=== PATIENT | male | born 1930 | race Caucasian/White ===

== ENCOUNTER 2020-02-01 01:24 | Inpatient (IN) | payer OTHER ==
[~2020-02-01] VITALS: Ht 167.6 cm; Wt 64.4 kg
[2020-02-01] MEDS ORDERED: FOLIC ACID1 MG PO (05:04)
[2020-02-01] MEDS ORDERED: LEXAPRO 10 MG T10 M1 PO (05:04)
[2020-02-01] MEDS ORDERED: FLOMAX0.4 MG PO (05:05)
[2020-02-01] MEDS ORDERED: PROSCAR 5MG TABL5 M1 PO (05:05)
[2020-02-01] MEDS ORDERED: NAMENDA 5 MG TAB5 M1 PO (05:06)
[2020-02-01] MEDS ORDERED: SEROQUEL 25 MG25 MG PO (05:07)
[2020-02-01 07:48] VITALS: BP 143/59
[2020-02-01 13:18] LABS: ABSOLUTE NEUTROPHILS 2.6 thou/uL (1.4-8.2); BASOPHILS 0.7 % (0.0-2.0); EOSINOPHILS 4.2 % (0.0-3.0); HEMATOCRIT 44.3 % (42.0-52.0); HEMOGLOBIN 14.5 gm/dL (14.0-18.0); LYMPHOCYTES 18.7 % (24.0-44.0); MCH 31.8 pg (26.0-34.0); MCHC 32.8 g/dL (28.0-37.0); MCV 96.9 fL (80.0-100.0); MONOCYTES 8.3 % (1.0-8.0); PLATELET COUNT 196 thou/uL (150-400); POLYS 68.1 % (36.0-66.0); RBC 4.57 mil/uL (4.50-6.00); RDW 13.9 % (10.5-14.5); WBC 3.9 thou/uL (4.0-11.0)
[2020-02-01 13:39] LABS: ALBUMIN 3.8 g/dL (3.4-5.0); CALCIUM 9.6 mg/dL (8.5-10.1); CREATININE 1.6 mg/dL (0.7-1.3); MAGNESIUM 2.2 mg/dL (1.8-2.4); POTASSIUM 4.5 mmol/L (3.5-5.1); TOTAL BILIRUBIN 0.6 mg/dL (<0.1-1.0); TOTAL PROTEIN 7.4 g/dL (6.4-8.2)
[2020-02-01 14:01] VITALS: BP 143/59
--- NOTE | 2020-02-01 15:16 | NUR ---
KING spoke with pt's son Adolfo and complted the intake assessment and TP. Adolfo reported that his dad has been a silver alert twice , once for walking out of he house and getting lost, the other getting lost while driving. Pt's spouse has parkinson's and osteoparosis and has been having TIA's which family believe are the result of the stress and physical exhaustaion from living with a " demanding spouse". Pt's has been aggressive and impulsive for the past 6 momths but has been more evident when he and his spouse moved in with their ht Gisel. King suggestion memoery care as an option and emailed a scanned copy of a list of SNF with medicaid and memory care. Later king spoke with Gisel and reported the memeory care option. Although she is hoping that with medication this pt will retrun home. KING suggested that a place be found so it can be used when necessary. She agreed and will be lookign into places for him. Pt will need medicaid and King scanned a facesheet as a referral for [facility] to start a medicaid application.
[2020-02-01 16:43] LABS: URINE BILIRUBIN NEGATIVE (Negative); URINE BLOOD 2+ (Negative); URINE CLARITY CLEAR; URINE COLOR YELLOW; URINE GLUCOSE-RANDOM* NEGATIVE (Negative); URINE KETONES NEGATIVE (Negative); URINE LEUKOCYTES-REFLEX 1+ (Negative); URINE NITRITE-REFLEX POSITIVE (Negative); URINE PROTEIN (DIPSTICK) NEGATIVE (Negative); URINE UROBILINOGEN 0.2 E.U./dl (0.2-1.0)
[2020-02-01 16:57] LABS: CALCIUM OXALATE 0-3 Few /LPF (None Seen); CASTS None Seen /LPF (None Seen); SQUAMOUS 4-10 Moderate /LPF (0-3)
[2020-02-01 16:58] LABS: URINE RBC 3-10 Few /HPF (0-2)
--- NOTE | 2020-02-01 17:26 | NUR ---
ASSUMED CARE AT 0700 THIS MORNING. PT. HAS BEEN UP, DRESSED AND ON THE UNIT FOR MEALS. HE TOOK HIS MEDICATIONS WITHOUT DIFFICULTIES. HE ATTENDED GROUPS HE HAS NOT MADE ANY SI/HI OR AVH STATEMENTS TO THIS CARPENTER MAINTENANCE. HE HAS REMAINED PLEASANT AND COOPERATIVE. HE TOOK A SHOWER THIS EVENING.
[2020-02-01 19:26] VITALS: BP 101/52
--- NOTE | 2020-02-01 21:18 | NUR ---
Assumed care of patient at change of shift. Pt. already in bed laying with eyes closed. Pt. awakens easily and answers questions appropriately. Pt is oriented x 4, has flat affect, and is calm and cooperative. Pt. took hs meds whole with thin liquids. No choking or coughing noted after swallowing. Pt. denies pain and no signs or symptoms of distress noted.
[2020-02-01 23:42] VITALS: BP 101/52
[2020-02-02 06:35] LABS: CHOLESTEROL 149 mg/dL (<200); HDL CHOLESTEROL 33 mg/dL (>40); LDL CHOLESTEROL 92 mg/dL (<100); TC:HDL 4.5 Ratio (Not establshd); TRIGLYCERIDE 121 mg/dL (<150); VLDL 24 mg/dL (<40)
[2020-02-02 06:36] LABS: SERUM ASSESSMENT Clear
[2020-02-02 08:52] VITALS: BP 139/68
--- NOTE | 2020-02-02 09:34 | NUR ---
[facility] having ppt d/c to his own home with a 09/06 caregiver. TYLER returned with an email and will consult the Dr if pt is capable to sign a DPOA.
--- NOTE | 2020-02-02 09:35 | NUR ---
Emails include- [email or web address] and [email or web address]
--- NOTE | 2020-02-02 12:01 | NUR ---
Sw called and spoke with pt's daughter Gisel and repored on the meds to which she replied " well then he's just going to sleep all day" and sw attepted to educate he about the dignity we adhere to as providers, and she stateed " well - we will just take him out of there and take him to his PCP and change those meds." and she wants to speak with Dr Choi. SW also spoke to her about the d/c plans and she will take him to his home and stay with his 09/06. Hoepfully this is effective but this pt has been very angry at her, and SW attempted to redirect this plan, but Gisel is adament. TYLER requsted that Dr Choi contact this [facility].
--- NOTE | 2020-02-02 12:07 | NUR ---
Gisel also asked if this pt could sign a DPOA for medical and Dr Choi stated that if he was stil clear and adjusted to meds this can be completed tomorrow. TYLER reported that to Gisel.
--- NOTE | 2020-02-02 14:39 | NUR ---
0700 ASSUMED CARE OF PATIENT PATIENT IN ROOM AT THAT TIME. PATIENT OUT TO DAYROOM FOR BREAKFAST. PATIENT DENIES NEEDS AT THAT TIME. PATIENT SITTING AT TABLE COMMUNICATING WELL WITH OTHERS. 0830 PATIENT DENIES SI/HI/AH/VH, DENIES PAIN. MEDS TAKEN WITHOUT DIFFICULTY. PATIENT STATES GOAL FOR THE DAY IS TO GET OUT AND GO BACK HOME. PATIENT STATES CONCERN IS HIS . STATES "I TAKE CARE OF HER AND EVEN THOUGH HER DAUGHTER MIGHT STEP IN I MISS HER. WE HAVE BEEN 70 YRS AND I KNOW SHE LOVES ME". PATIENT IS PLEASANT AND CALM. SITTING ON COUCH WATCHING TV DENIES OTHER NEEDS.
[2020-02-02 19:03] VITALS: BP 108/61
[2020-02-02 22:07] LABS: GLYCOHEMOGLOBIN (HGB A1C) 6.1 % (4.8-5.6)
--- NOTE | 2020-02-03 04:39 | NUR ---
Assumed care of pt @ 1900. Pt calm et cooperative with pleasant demeanor. Socialized in dayroom until HS. Took medications whole without difficulty. Ambulates the halls ad miguelina with steady gait. VSWNL. Health assessment with no abnormalities noted at present time. Denies SI/HI @ present time. Currently resting in bed with eyes closed. Will continue to monitor per protocol.
[2020-02-03 09:22] VITALS: BP 118/80
--- NOTE | 2020-02-03 10:22 | NUR ---
0700 ASSUMED CARE OF PATIENT, PATIENT ASLEEP IN BED AT THAT TIME. 0800 PATIENT TO DAYROOM FOR BREAKFAST. 0855 NO C/O PAIN, DENIES AI/HI/AH/VH, LUNG SOUNDS CLEAR, BS ACTIVE. PATIENT CALM AND COOPERATIVE. PATIENT STATES HAVING SLIGHT ANXIETY DUE TO NOT GOING HOME YET. PATIENT DENIES DEPRESSION ANS STATES "TRY NOT TO HAVE IT". PATIENT GOAL FOR THE DAY IS TO GO HOME AND CONCERN IS THAT FAMILY WILL TRY TO PUT HIM BACK IN HERE. PATIENT STATES "I AM FINE AND ALL THERE, I HAVE NOT LOST MY HEAD LIKE OTHERS HERE". 0910 PATIENT PARTICIPATING IN GROUP. WILL CONTINUE TO OBSERVE.
[2020-02-03 19:45] VITALS: BP 132/60
--- NOTE | 2020-02-04 04:09 | NUR ---
Assumed care of pt @ 1900. Pt calm et cooperative with pleasant demeanor this shift. Took medication whole without difficulty. Ambulates the halls ad miguelina with steady gait. Independent with cares. VSWNL. Health assessment with no abnormalities other than previously noted. Denies SI/HI. Currently resting in bed with eyes closed. Will continue to monitor per protocol.
[2020-02-04 08:00] VITALS: BP 118/69
--- NOTE | 2020-02-04 11:50 | NUR ---
0700 ASSUMED CARE OF PATIENT. PATIENT UP AMB IN DIAZ AT THAT TIME. 0800 AT TABLE IN DAYROOM FOR BREAKFAST. NO C/O PAIN, LS CLEAR, BS ACTIVE. PATIENTS GOAL IS TO GO HOME AND CONCERN PATIENT STATES THAT HIS KIDS ARE DOING THIS TO HIM AND WON'T LET ME GO HOME. PATIENT IS ANXIOUS ABOUT GOING HOME AND DOES NOT KNOW WHEN THIS WILL HAPPEN. PATIENT WAS CALM AT THAT TIME. WILL CONTINUE TO OBSERVE.
[2020-02-04 14:08] VITALS: BP 118/69
--- NOTE | 2020-02-04 14:40 | NUR ---
SW made packet and left it on the chart and made the FAX packet ready to send at D/C. It is expected that pt will d/c tomorrow, time is TBD. TYLER completed the d/c summary portion and added the handouts to [facility] and [facility] for pt to call after d/c . [facility] are doing tele intakes during COVID 19 restrictions.
--- NOTE | 2020-02-04 15:11 | NUR ---
SW met with pt while in dining room for 1:1 and he is happy to be discharging home . Unable to complete group due to COVID 19 restrictions
--- NOTE | 2020-02-04 15:37 | NUR ---
TYLER spoke with Adolfo who reported that they now " don't know what to do". and SW reinforced that if they cannot handle him at home memory care is the options, but Gisel did not wnat that and was taking this pt home and will provide 24/7 care. He stated he would call back jalen speak with the SW tomorrow with what they decided.
--- NOTE | 2020-02-04 17:48 | NUR ---
PATIENT EATING DINER, DENIES NEEDS AT THIS TIME. PATIENT SMILING AND HAPPY HE WILL BE DC'D TOMORROW.
[2020-02-04 19:24] VITALS: BP 151/68
[2020-02-04 19:26] VITALS: BP 151/68
--- NOTE | 2020-02-04 22:02 | NUR ---
Assumed care of patient at change of shift. Pt. is currently sitting in day room fully dressed and neata looking. He conversing with peers but not a lot. Pt. took medications whole with thin liquids. No coughing or choking noted after swallowing. Pt. is up ad miguelina walking in hallways. Gait is normal paced and steady. No concerns with patient ambulating by self. Talked with patient regarding discharge. He did not remember that he is being discharged but was happy to hear. Voices no complaints and no signs or symptoms of distress noted.
[2020-02-04 22:57] VITALS: BP 151/68
[2020-02-05 07:37] VITALS: BP 152/77
--- NOTE | 2020-02-05 08:40 | NUR ---
TYLER contacted Adolfo Castillo. No msg. Lft msg requesting a return call. SW team will continue to follow pt during his stay on this unit.
[2020-02-05 09:49] VITALS: BP 152/77
--- NOTE | 2020-02-05 13:08 | NUR ---
TYLER received a call from Caryl Castillo, pt's daughter, requesting a care plan for pt after pt's discharges. She also wanted to know if the doctor will put on the documentation that pt cannot drive; she requested to speak to the doctor. TYLER contacted Dr. Choi who said she had an extensive conversation with Adolfo and he stated he would figure out a time for spanish moss picker and gave no indication to her that he was considering another plan. She also stated that pt has requested the only person to be involved in care is Adolfo. TYLER relayed this information to Caryl in which she replied "well that's fine. Adolfo can figure it out then without help from me or my sister." TYLER attempted to call Adolfo 3x's; on the third time he answered and responded that he and his family are still thinking options over and he was told by Caryl that it is okay for pt to discharge tomorrow at noon. TYLER explained that she nor Dr. Choi told Caryl that, and that his conversation with the Dr. Choi did not indicate he would not be picking pt up today. He said that he spoke with the SW yesterday willa and said that he was not sure he could care for pt so he was thinking over options. TYLER contacted Dr. Choi who okayed pt to discharge Friday. TYLER provided this update to Adolfo. He said ok. TYLER updated pt's nursing staff. TYLER team will continue to follow pt during his stay on this unit.
--- NOTE | 2020-02-05 14:18 | NUR ---
TYLER did a check in with pt instead of group due to COVID-19 guidelines. SW updated pt on that he is not due to discharge until Friday. TYLER asked how he felt about that, and his response was a nonchalant shrug. He said " I wish my children would have done this differently." SW asked how he would have preferred his children handle the situation. He said that he wished they would have sat him down and talked with him instead of admitting him to the unit. He then said "I guess I have to stop driving." He said that he is cognitively aware enough to drive and that all he needs is his next to him. TYLER explained that at his age his reaction time is not the same. She suggested he go to the DMV and complete a drivers exam to "prove his children wrong." He said he plans to do so. SW team will continue to follow pt during his stay on this unit.
--- NOTE | 2020-02-05 14:21 | NUR ---
SW did a check in with pt instead of group due to COVID-19 guidelines. Pt had another pt's watch in his hand and was attempting to put it on. SW calmly approached pt and asked to hold the watch. Pt reluctantly gave it to SW. SW then returned it to the pt it belonged to. SW team will continue to follow pt during his stay on this unit.
--- NOTE | 2020-02-05 18:50 | NUR ---
ASSUMED CARE AT 0700 TODAY. HE HAS BEEN PLEASANT AND COOPERATIVE TODAY. HE TOOK HIS MEDICATIONS WITHOUT DIFFICULTIES. HE WAS HAPPY TO BE GOING HOME TODAY, HOWEVER HIS FAMILY COULD NOT ACCOMPLISH THAT. PT. IS TO LEAVE ON WEDNESDAY FEBRUARY 05, 2020. PT. ACCEPTED THIS WELL. HE HAS BEEN UP AD LETTY, HE IS A&O X 3 TO 4.
[2020-02-05 19:25] VITALS: BP 130/62
--- NOTE | 2020-02-05 21:52 | NUR ---
Assumed care at change of shift. Pt. sitting in day room watching TV and conversing with peers. Affect is bright and he appears to enjoy interacting with his peers. Assessment done. Pt. voices no complaints and no signs or symptoms of distress note. He took medications whole with thin liquids. coghing or choking noted after swallowing. Pt. ambulated to his room and got himself ready for bed. He is currently laying in bed with eyes closed.
[2020-02-05 23:18] VITALS: BP 130/62
[2020-02-06 07:30] VITALS: BP 143/52
[2020-02-06 09:24] VITALS: BP 143/52
[2020-02-06 09:46] VITALS: BP 143/52
--- NOTE | 2020-02-06 09:53 | NUR ---
ASSUMED CARE AT 0700 THIS MORNING. PT. UP, DRESSED AND IN THE DINING ROOM FOR BREAKFAST. HE IS PLEASANT AND COOPERATIVE WITH STAFF AND PEERS. HE TOOK HIS MEDICATIONS WITHOUT DIFFICULTIES. IS TALKING ABOUT GOING HOME TOMORROW. HE SEEMS HAPPY WITH THAT IDEA. NOT NEW PROBLEMS NOTED OR VOICED. HE IS DENYING SI/HI/AVH THIS MORNING.
--- NOTE | 2020-02-06 12:57 | NUR ---
Date of Admission: 02/01/2020 Date of Activity Therapy Assessment: 02/03/2020 Activity Goal:Impulse Control/Insight Initial Goal:Two RT groups per day Weekly progress towards goal: On track Group participation level: Full Behaviors observed:Pt does well in groups but is quiet and socially reserved. Pt is able to follow direction and enjoys exercising. Plan: No change towards goal
[2020-02-06 19:29] VITALS: BP 74/41
[2020-02-06 22:39] VITALS: BP 74/41
[2020-02-06 23:33] LABS: URINE BILIRUBIN NEGATIVE (Negative); URINE BLOOD TRACE (Negative); URINE CLARITY CLEAR; URINE COLOR YELLOW; URINE GLUCOSE-RANDOM* NEGATIVE (Negative); URINE KETONES NEGATIVE (Negative); URINE LEUKOCYTES-REFLEX TRACE (Negative); URINE NITRITE-REFLEX NEGATIVE (Negative); URINE PROTEIN (DIPSTICK) NEGATIVE (Negative); URINE SPECIFIC GRAVITY 1.015 (1.005-1.035); URINE UROBILINOGEN 0.2 E.U./dl (0.2-1.0)
--- NOTE | 2020-02-07 01:04 | NUR ---
PATIENT WAS UP IN DINING ROOM TILL BEDTIME TONIGHT. HE WAS CALM AND COOPERATIVE. HE STATES HE IS READY TO GO HOME. HE IS FRUSTRATED WITH HIS KIDS IN THAT HE FEELS THEY ARE TRYING TO MOVE HIM OUT OF HIS HOME THAT HE HAS PAID FOR. HE FEELS THEY ARE TRYING TO SEPARATE HIM AND HIS . HE STATES THAT HE IS AWARE THAT HE DOES GET FORGETFUL BUT NOTES THAT IT IS MAINLY IN THE EVENINGS AND THAT HE IS AWARE OF THINGS DURING THE DAYTIME. 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 HE IS HOPING THAT HE WILL BE DC/D TO HIS HOME IN AM AND NOT SOMEWHERE ELSE. HE HAS BEEN COOPERATIVE AND TOOK HIS MEDS WHOLE. UA WAS COLLECTED TONIGHT AND HE HAS LABS ORDERED IN THE MORNING. PATIENT IS SLEEPING AT THIS TIME. HE DENIES PAIN. NO SI/HI/AVH. CONTINUED ROUNDING FOR SAFETY ASSESSMENT. WILL CONTINUE TO MONITOR.
[2020-02-07 05:14] LABS: HEMATOCRIT 39.7 % (42.0-52.0); HEMOGLOBIN 13.4 gm/dL (14.0-18.0); MCH 32.6 pg (26.0-34.0); MCHC 33.6 g/dL (28.0-37.0); RBC 4.1 mil/uL (4.50-6.00); RDW 13.9 % (10.5-14.5); WBC 4.6 thou/uL (4.0-11.0)
[2020-02-07 05:34] LABS: CALCIUM 8.8 mg/dL (8.5-10.1); CREATININE 1.3 mg/dL (0.7-1.3)
--- NOTE | 2020-02-07 08:22 | NUR ---
02/06/20 TYLER called and spoke with Toribio and he stated that his sister and mother arvind be picking pt up tomorrow. 02/07/20 Tyler recieved an email providing Gisel's number and that she would be picking up this pt. Tyler then called and Gisel was antagonistic and responsded that " my dad doesnt want me anywhere near him." Tyler stated that we will call Toribio and coordinate a pick up driver time. When this worker had spoken with Gisel also this week, she was going to have him live in his own home with 09/06 supervison.
[2020-02-07 08:27] VITALS: BP 156/69
--- NOTE | 2020-02-07 08:31 | NUR ---
TYLER then called and had to leave a for Toribio. Gisel called again and wanted to reinterate that she does not think her dad wants from her.
--- NOTE | 2020-02-07 09:31 | NUR ---
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 AUGUSTA made packet and left it on chart- included are the [place] [facility] for [facility] with [facility] or [facility].
--- NOTE | 2020-02-07 12:14 | NUR ---
[id number] PLEASANT AND COOPERATIVE. DENIES PAIN. DRESSED D/C TO HOME ACCOMPANIED BY .
== END 2020-02-07 11:30 | disposition home or self-care (01) | DRG 884 ==
LOC: SBH
PROVIDERS: Internal Medicine; Nurse Practitioner; Psychiatry & Neurology Psychiatry; ADMIT Psychiatry & Neurology Psychiatry
DX: F03.91 Unspecified dementia, unspecified severity, with behavioral disturbance (principal); N17.9 Acute kidney failure, unspecified; L40.50 Arthropathic psoriasis, unspecified; N39.0 Urinary tract infection, site not specified; F32.9 Major depressive disorder, single episode, unspecified; N40.0 Benign prostatic hyperplasia without lower urinary tract symptoms; I48.0 Paroxysmal atrial fibrillation; M06.9 Rheumatoid arthritis, unspecified; Z88.0 Allergy status to penicillin; Z88.1 Allergy status to other antibiotic agents; Z88.8 Allergy status to other drugs, medicaments and biological substances; Z79.01 Long term (current) use of anticoagulants
CPT/HCPCS: 10880